=== PATIENT | female | born 1965 | race Caucasian/White ===

== ENCOUNTER 2016-03-23 11:15 | Day surgery (SDC) | payer OTHER, MEDICAID ==
[~2016-03-23 11:15] MED LIST: BUPIVACAINE/EPI 0.5% 30 ML SDV ONE; SKIN ADHESIVE (DERMABOND) 1 EACH TP ONE
[2016-03-23] MEDS ORDERED: LIDOCAINE 1% 5 ML SDV ID PRN (12:38)
[2016-03-23] MEDS ORDERED: LR 1,000 ML IV ONE (12:38)
[2016-03-23] MEDS ORDERED: fentaNYL 250 MCG/5 ML INJ ONE (13:01)
[2016-03-23] MEDS ORDERED: PROPOFOL/EMULSION 500 MG/50 ML BOTTLE IV ONE ×2 (13:01→14:03)
[2016-03-23] MEDS ORDERED: LIDOCAINE 2% 5 ML SDV ONE (13:02)
[2016-03-23] MEDS ORDERED: DEXAMETHASONE 4 MG/ML VIAL ONE ×2 (13:04)
[2016-03-23] MEDS ORDERED: MIDAZOLAM 2 MG/2 ML VIAL ONE (13:07)
[2016-03-23] MEDS ORDERED: ROCURONIUM 50 MG/5 ML VIAL ONE (13:18)
--- NOTE | 2016-03-23 13:28 | NM ---
Parathyroid Injection Nuclear Medicine Study Indication: Parathyroid adenoma localization. Technique: 10.1 mCi of technetium 99m sestamibi were injected, and the patient was brought to the ope rating room for intraoperative localization. Findings: No images were obtained. Sestamibi was injected for intraoperative localization. Impression: Sestamibi injection for intraoperative localization.
[2016-03-23] MEDS ORDERED: ONDANSETRON 4 MG/2 ML VIAL ONE ×2 (14:26→15:23)
[2016-03-23] MEDS ORDERED: NEOSTIGMINE METHYLSULFATE 5 MG/5 ML SYR ONE (14:49)
[2016-03-23] MEDS ORDERED: GLYCOPYRROLATE 0.2 MG/1 ML VIAL ONE (14:50)
[2016-03-23] MEDS ORDERED: fentaNYL 100 MCG/2 ML INJ ONE ×2 (15:11→15:32)
[2016-03-23] MEDS ORDERED: PROMETHAZINE HCL 25 MG/ML VIAL ONE (16:02)
[2016-03-23] MEDS ORDERED: HYDROmorphONE/DILAUDID 2 MG TAB ONE (16:24)
[2016-03-23] MEDS ORDERED: PROMETHAZINE HCL 25 MG/ML VIAL IV SCH (16:30)
--- NOTE | 2016-03-24 14:05 | GOP ---
[f rep st] OPERATIVE REPORT DATE OF OPERATION: 03/23/2016 SURGEON: Lance Cartagena MD [employer]ER: Rochelle Henson PA-C ANESTHESIA: General by Jed Talbot MD. PREOPERATIVE DIAGNOSIS: Primary hyperparathyroidism. POSTOPERATIVE DIAGNOSIS: Primary hyperparathyroidism. PROCEDURE PERFORMED: Radio-guided parathyroidectomy with intraoperative PTH monitoring. INDICATIONS: 50-year-old female with primary hyperparathyroidism. Preoperative localization studies suggest a right neck clinical adenoma. She is undergoing surgical intervention at this time. Risks and benefits explained including bleeding, infection, persistent and recurrent hyperparathyroidism, hypoparathyroidism, recurrent laryngeal nerve injury, need for additional surgical intervention. All questions entertained. She desires to proceed. DESCRIPTION OF PROCEDURE: General anesthesia was induced. The neck was preinjected with 0.5% Marcaine with epinephrine. Gamma probe disclosed 1700 units along the thyroid isthmus. The right mid to upper neck disclosed uptake of 2300 units on the gamma counter. A low collar incision was created. Strap muscles were . The right calos-neck cavity was initially explored. Thyroid gland was multilobulated. Immediately evident was a normal-appearing lower pole gland just at the lateral inferior aspect of the lower thyroid pole. The recurrent laryngeal nerve was identified coursing into the cricothyroid muscle. Sitting behind the upper pole was a 2 cm clinically enlarged parathyroid gland as suggested on preoperative ultrasonography. This was dissected back to its feeding vasculature and removed. Ex vivo measurements measured approximately 400 units. On subsequent neck exploration, the contralateral neck showed a normal upper and lower pole gland sitting in mirror image locations. No suspicious lateral neck adenopathy was present bilaterally. Hemostasis was assured throughout bilateral neck cavities. Preoperative PTH values were 110; five minute values were 20. Satisfactory hemostasis was assured. The neck was closed in layers with absorbs followed by Dermabond. The patient was taken to recovery uneventfully. Copy requested to: Teresita Ballard /[id number]/MODL [id number]
== END 2016-03-23 17:15 | disposition home or self-care (01) ==
LOC: FSGY 11:15
PROVIDERS: ATTEND Surgery
PROC: 0GTR0ZZ Resection of Parathyroid Gland, Open Approach (ICD-10-PCS; principal; 2016-03-23 13:15)
DX: E21.0 Primary hyperparathyroidism (principal); E04.1 Nontoxic single thyroid nodule
CPT/HCPCS: 60500; 78808; A9500; J1100; J2250; J2405; J2550; J2704; J2710; J3010

== ENCOUNTER → 2017-11-15 | Outpatient (CLI) | payer OTHER, MEDICAID | LOC: BHFA 10:30 | PROVIDERS: ATTEND Internal Medicine Cardiovascular Disease | DX: R55 Syncope and collapse (principal); R40.4 Transient alteration of awareness ==